=== PATIENT | male | born 1960 | race African-American/Black ===

== ENCOUNTER 2017-10-11 07:52 | Emergency (ER) | payer MEDICAID ==
[~2017-10-11] VITALS: Ht 172.7 cm; Wt 109.1 kg
[2017-10-11] MEDS ORDERED: IBUPROFEN 800 MG TABLET PO ONE (09:00)
[2017-10-11 09:30] VITALS: BP 156/102
== END 2017-10-11 09:45 | disposition home or self-care (01) ==
LOC: EMS 07:54
DX: M25.571 Pain in right ankle and joints of right foot (principal); X58.XXXA Exposure to other specified factors, initial encounter; Y93.89 Activity, other specified; Y92.89 Other specified places as the place of occurrence of the external cause; Y99.8 Other external cause status
CPT/HCPCS: 99284

== ENCOUNTER 2024-11-02 09:15 | Emergency (ER) | payer MEDICAID, OTHER ==
[~2024-11-02] VITALS: Ht 167.6 cm; Wt 104.5 kg
[2024-11-02] MEDS ORDERED: LOSA100T59 PO (09:23)
[2024-11-02] MEDS ORDERED: METF-81 PO (09:23)
[2024-11-02] MEDS ORDERED: ATOR40TA71 PO (09:23)
[2024-11-02] MEDS ORDERED: AMLO5TAB66 PO (09:23)
[2024-11-02 09:24] VITALS: TEMP 98.2
[2024-11-02] MEDS: CEPHALEXIN MONOHYDRATE 500 MG CAPSULE PO ONE (10:14)
[2024-11-02] MEDS: IBUPROFEN 600 MG TABLET PO ONE (10:14)
[2024-11-02] MEDS: HYDROCODONE/ACETAMINOPHEN 5-325 MG TABLET PO ONE (10:14)
[2024-11-02 10:56] LABS: BASOPHILS % (AUTO) 0.4 % (0.0-2.0); EOSINOPHILS % (AUTO) 0.2 % (1.0-6.0); LYMPHOCYTES # (AUTO) 1.8 K/uL (1.0-4.8); NEUTROPHILS # (AUTO) 7.3 K/uL (1.8-7.7)
[2024-11-02 10:59] LABS: ANION GAP 12 mmol/L (8-16); CALCIUM, TOTAL 9.1 mg/dL (8.8-10.5); CARBON DIOXIDE 26 mmol/L (22-29); CHLORIDE 98 mmol/L (98-107); CREATININE 1.32 mg/dL (0.60-1.30); GLOMERULAR FILTR. RATE CALC > 60 mL/min (>60); GLUCOSE,RANDOM 124 mg/dL (70-110); POTASSIUM 3.9 mmol/L (3.5-5.1); SODIUM SERUM 136 mmol/L (136-145); UREA NITROGEN, BLOOD 17 mg/dL (7-18)
[2024-11-02 11:00] LABS: HEMATOCRIT 42.2 % (41-53); HEMOGLOBIN 14.5 g/dL (13.5-17.5); LYMPHOCYTES % (AUTO) 17.8 % (22.0-44.0); MEAN CORPUSCULAR HGB CONC 34.4 G/dL (31.0-37.0); MEAN CORPUSCULAR VOLUME 90 fL (80-100); MONOCYTES % (AUTO) 9.6 % (2.0-9.0); PLATELET COUNT (AUTO) 294 K/uL (150-450); RED BLOOD CELL COUNT(AUTO) 4.69 MIL/uL (4.50-5.90); RED CELL DISTRIBUTION WIDTH 14.8 % (11.5-14.5); WHITE BLOOD COUNT (AUTO) 10.1 K/uL (4.5-11.0)
[2024-11-02 11:02] LABS: URIC ACID 6.2 mg/dL (2.6-7.2)
[2024-11-02 11:45] VITALS: BP 103/85; PULSE 77; RESP 16; O2SAT 97
[2024-11-02] MEDS ORDERED: DOXY-354 PO (11:48)
[2024-11-02] MEDS ORDERED: IBUP-1554 PO (11:48)
[2024-11-02] MEDS ORDERED: CEPH-558 PO (11:48)
[2024-11-02] MEDS ORDERED: HYDR-4062 PO (11:48)
== END 2024-11-02 12:00 | disposition home or self-care (01) ==
LOC: EMS 09:17
DX: L03.113 Cellulitis of right upper limb (principal); M19.031 Primary osteoarthritis, right wrist; I10 Essential (primary) hypertension; E78.00 Pure hypercholesterolemia, unspecified; Z79.84 Long term (current) use of oral hypoglycemic drugs; Z79.899 Other long term (current) drug therapy
CPT/HCPCS: 80048; 84550; 85025; 99284